=== PATIENT | male | born 1980 | race Caucasian/White ===

== ENCOUNTER 2021-04-23 15:41 | Emergency (ER) | payer OTHER ==
[2021-04-23 16:02] VITALS: BP 134/89; PULSE 90; TEMP 98; BMI 31.6
[2021-04-23] MEDS ORDERED: LACTATED RINGERS SOLUTION 1000 ML INFUS.BAG IV ONE (16:32)
[2021-04-23 17:28] LABS: BASO % 0.7 % (0-2.0); EOS % 1.4 % (0-4.5); LYMPH % 28.2 % (8-40); MCHC 34.7 g/dl (32.0-35.9); MEAN CELL VOLUME 89.4 fl (80-96); MONO % 7.8 % (3.8-10.2); NEUT % 61.9 % (42.8-82.8); PLATELET COUNT 207 10^3/uL (134-434); RBC 5.49 M/mm3 (4.00-5.60); RDW 13.1 % (11.9-15.9); WHITE BLOOD COUNT 9.4 K/mm3 (4.0-10.0)
[2021-04-23 17:45] LABS: ALBUMIN 4.2 g/dl (3.4-5.0); CALCIUM 9.4 mg/dL (8.5-10.1)
[2021-04-23 17:46] LABS: BLOOD UREA NITROGEN 13.2 mg/dL (7-18)
[2021-04-23 17:47] LABS: VENOUS BASE EXCESS 0.1 mmol/L (-2-2); VENOUS O2 SATURATION 77.3 % (70-80); VENOUS PH 7.377 (7.310-7.410)
[2021-04-23 17:49] LABS: CREATININE 0.8 mg/dL (0.55-1.3)
[2021-04-23] MEDS ORDERED: SODIUM CHLORIDE 0.9% 500 ML INFUS.BAG IV ONE (17:49)
[2021-04-23 17:50] LABS: BILIRUBIN,TOTAL 0.6 mg/dL (0.2-1); TOT PROT 8.1 g/dl (6.4-8.2)
[2021-04-23 18:16] LABS: URINE APPEARANCE CLEAR; URINE BILIRUBIN NEGATIVE (NEGATIVE); URINE COLOR YELLOW; URINE GLUCOSE (UA) 3+ (NEGATIVE); URINE KETONE NEGATIVE (NEGATIVE); URINE LEUK ESTERASE NEGATIVE (NEGATIVE); URINE NITRITE NEGATIVE (NEGATIVE); URINE PROTEIN TRACE (NEGATIVE)
[2021-04-23] MEDS ORDERED: metFORMIN HCL 500 MG TABLET (FP) PO ONE (18:52)
[2021-04-23] MEDS ORDERED: metFORMIN HCL 500 MG TABLET (FP) ONE (18:54)
== END 2021-04-23 19:36 | disposition home or self-care (01) ==
LOC: JER 15:41
DX: R73.9 Hyperglycemia, unspecified (principal)
CPT/HCPCS: 36415; 80053; 81003; 82010; 82803; 82962; 85025; 87086; 99283-25

== ENCOUNTER 2021-08-04 19:21 | Emergency (ER) | payer OTHER ==
[2021-08-04 19:37] VITALS: BP 146/93; PULSE 87; TEMP 98.4; BMI 36.7
[2021-08-04 21:41] LABS: BLOOD UREA NITROGEN 12.4 mg/dL (7-18)
[2021-08-04 21:45] LABS: CREATININE 0.6 mg/dL (0.55-1.3)
== END 2021-08-04 22:39 | disposition home or self-care (01) ==
LOC: JER 19:21
DX: R79.9 Abnormal finding of blood chemistry, unspecified (principal)
CPT/HCPCS: 36415; 80048; 99283-25

== ENCOUNTER 2022-06-04 18:29 | Emergency (ER) | payer OTHER ==
[2022-06-04 18:54] VITALS: BP 161/78; PULSE 94; RESP 18; TEMP 98.7; BMI 32.9
[2022-06-04] MEDS ORDERED: diphenhydrAMINE HCL 50 MG CAPSULE PO ONE (21:12)
[2022-06-04] MEDS ORDERED: diphenhydrAMINE HCL 25 MG CAPSULE (FP) PO ONE (21:13)
== END 2022-06-04 21:15 | disposition home or self-care (01) ==
LOC: JER 18:29 → JERFT 18:29
DX: L25.8 Unspecified contact dermatitis due to other agents (principal)
CPT/HCPCS: 99283-25

== ENCOUNTER 2022-12-19 15:51 | Emergency (ER) | payer OTHER ==
[2022-12-19 16:08] VITALS: TEMP 98; BMI 34.4
[2022-12-19] MEDS ORDERED: amLODIPine BESYLATE 5 MG TABLET (FP) PO ONE (16:50)
[2022-12-19] MEDS ORDERED: amLODIPine BESYLATE 5 MG TABLET (FP) ONE (16:54)
[2022-12-19 18:05] LABS: BASO % 0.9 % (0-2.0); EOS % 0.2 % (0-4.5); HEMATOCRIT 46.2 % (35.4-49); HEMOGLOBIN 15.9 GM/dL (11.7-16.9); LYMPH % 15.6 % (8-40); MCH 31.4 pg (25.7-33.7); MCHC 34.3 g/dl (32.0-35.9); MEAN CELL VOLUME 91.6 fl (80-96); MEAN PLT VOLUME 10.9 fl (7.5-11.1); MONO % 4.1 % (3.8-10.2); NEUT % 79.2 % (42.8-82.8); PLATELET COUNT 184 10^3/uL (134-434); RBC 5.05 M/mm3 (4.00-5.60); RDW 12.5 % (11.9-15.9); WHITE BLOOD COUNT 13.8 K/mm3 (4.0-10.0)
[2022-12-19 18:19] VITALS: BP 165/105; PULSE 92; RESP 20
[2022-12-19 18:29] LABS: CHLORIDE 102 mmol/L (98-107); SODIUM 135 mmol/L (136-145)
[2022-12-19 18:31] LABS: CALCIUM 9.8 mg/dL (8.5-10.1); GLUCOSE,RANDOM 282 mg/dL (74-106)
[2022-12-19 18:32] LABS: ALBUMIN 4.3 g/dl (3.4-5.0); ANION GAP 6 MMOL/L (8-16); BLOOD UREA NITROGEN 11.3 mg/dL (7-18); CO2 28 mmol/L (21-32)
[2022-12-19 18:35] LABS: CREATININE 0.8 mg/dL (0.55-1.3); SGOT/AST 33 U/L (15-37); SGPT/ALT 51 U/L (13-61)
[2022-12-19 18:36] LABS: BILIRUBIN,TOTAL 0.3 mg/dL (0.2-1); TOT PROT 7.8 g/dl (6.4-8.2)
[2022-12-19 18:38] LABS: ALK PHOS 119 U/L (45-117)
== END 2022-12-19 19:00 | disposition home or self-care (01) ==
LOC: JER 15:51
DX: I10 Essential (primary) hypertension (principal); E13.69 Other specified diabetes mellitus with other specified complication
CPT/HCPCS: 36415; 80053; 84484; 85025; 93005; 93010; 99284-25